=== PATIENT | male | born 1990 | race Caucasian/White ===

== ENCOUNTER 2019-08-30 13:18 | Emergency (ER) | payer BC ==
[2019-08-30] MEDS ORDERED: BUPIVACAINE 0.5% PF 10 ML VIAL ONE (13:58)
[2019-08-30] MEDS ORDERED: LIDOCAINE 1% MPF 30 ML VIAL ONE (13:58)
--- NOTE | 2019-08-30 15:05 | ER ---
Nurse's Notes [facility] Name: Malcolm Mathew Age: 28 yrs Sex: Male : 1990 Arrival Date: 08/30/2019 Time: 13:24 Bed 26 Private MD: Diagnosis: Puncture wound with foreign body of left middle finger without damage to nail-fishhook Presentation: 08/30 13:30 Presenting complaint: Patient states: He was fishing and got the hook stuck in his aj1 right middle finger at 1245 today. Reports last tetanus shot was one year ago. Transition of care: patient was not received from another setting of care. Onset of symptoms was August 30, 2019 at 12:45. Risk Assessment: Do you want to hurt yourself or someone else? Patient reports no desire to harm self or others. Initial Sepsis Screen: Does the patient meet any 2 criteria? No. Patient's initial sepsis screen is negative. Does the patient have a suspected source of infection? Yes: Skin breakdown/wound. Care prior to arrival: None. 13:30 Method Of Arrival: Ambulatory aj 13:30 Acuity: TINO 4 aj1 Triage Assessment: 13:31 General: Appears in no apparent distress. comfortable, Behavior is calm, cooperative, aj1 appropriate for age. Pain: Pain currently is 2 out of 10 on a pain scale. Historical: - Allergies: 13:30 No Known Allergies; aj1 - Home Meds: 13:30 None [Active]; aj1 - PMHx: 13:30 None; aj1 - PSHx: 13:30 None; aj1 - Immunization history:: Last tetanus immunization: up to date Flu vaccine is not up to date. - Social history:: Smoking status: Patient/guardian denies using tobacco. - Ebola Screening: : Patient denies travel to an Ebola-affected area in the 21 days before illness onset. Screenin:32 Abuse screen: Denies threats or abuse. Denies injuries from another. Nutritional aj1 screening: No deficits noted. Tuberculosis screening: No symptoms or risk factors identified. 15:24 Fall Risk None identified. aj1 Assessment: 13:32 General: Appears in no apparent distress. comfortable, Behavior is calm, cooperative, aj1 appropriate for age. Pain: Pain currently is 2 out of 10 on a pain scale. Neuro: Level of Consciousness is awake, alert, obeys commands, Oriented to person, place, time, situation. Cardiovascular: Patient's skin is warm and dry. Respiratory: Airway is patent Respiratory effort is even, unlabored, Respiratory pattern is regular, symmetrical. GI: No signs and/or symptoms were reported involving the gastrointestinal system. : No signs and/or symptoms were reported regarding the genitourinary system. EENT: No signs and/or symptoms were reported regarding the EENT system. Derm: fish hook noted to right middle finger. Musculoskeletal: No signs and/or symptoms reported regarding the musculoskeletal system. Circulation, motion, and sensation intact. 14:12 Reassessment: Patient appears in no apparent distress at this time. No changes from aj1 previously documented assessment. Patient and/or family updated on plan of care and expected duration. Pain level reassessed. Patient is alert, oriented x 3, equal unlabored respirations, skin warm/dry/pink. 15:16 Reassessment: Patient appears in no apparent distress at this time. No changes from aj1 previously documented assessment. Patient and/or family updated on plan of care and expected duration. Pain level reassessed. Patient is alert, oriented x 3, equal unlabored respirations, skin warm/dry/pink. Vital Signs: 13:31 BP 124 / 79; Pulse 87; Resp 18; Temp 97.5; Pulse Ox 98% on R/A; Weight 108.86 kg; aj1 Height 6 ft. 3 in. (190.50 cm); Pain 2/10; 14:12 BP 114 / 71; Pulse 89; Resp 18; Pulse Ox 99% on R/A; aj1 15:24 BP 109 / 82; Pulse 88; Resp 18; Pulse Ox 97% on R/A; aj1 13:31 Body Mass Index 30.00 (108.86 kg, 190.50 cm) aj1 ED Course: 13:24 Patient arrived in ED. mr 13:29 Gayle Marie, RN is Primary Nurse. aj1 13:30 Triage completed. aj1 13:31 Arm band placed on Patient placed in an exam room. aj1 13:32 Patient has correct armband on for positive identification. Bed in low position. Call aj1 light in reach. 13:32 No provider procedures requiring assistance completed. aj1 13:36 Dayron Roger PA is PHCP. cp 13:36 Jimy Connolly MD is Attending Physician. cp 15:02 XRAY Hand LEFT 3 View In Process Unspecified. EDMS 15:16 Wound care: to puncture was cleaned with Betadine, irrigated with normal saline, aj1 Patient tolerated well. 15:25 Patient did not have IV access during this emergency room visit. aj1 Administered Medications: No medications were administered Outcome: 15:04 Discharge ordered by MD. cp 15:25 Discharged to home ambulatory. aj1 15:25 Condition: good 15:25 Discharge instructions given to patient, Instructed on discharge instructions, follow up and referral plans. medication usage, Demonstrated understanding of instructions, follow-up care, medications, Prescriptions given X 1. 15:25 Patient left the ED. aj1 Signatures: Dispatcher [employer] EDMS Gayle Marie RN RN aj1 Denisse Rodriguez Corey, PA PA cp Corrections: (The following items were deleted from the chart) 13:31 13:30 Presenting complaint: Patient states: He was fishing and got the hook stuck in aj1 his right middle finger at 1245 today aj1
--- NOTE | 2019-08-30 15:05 | EDPHYS ---
Physician Documentation [facility] Name: Malcolm Mathew Age: 28 yrs Sex: Male : 1990 Arrival Date: 08/30/2019 Time: 13:24 Bed 26 Private MD: ED Physician Jimy Connolly HPI: 08/30 14:00 This 28 yrs old Male presents to ER via Ambulatory with complaints of Fish cp hook in finger. 14:00 The patient or guardian reports injury, pain, a puncture wound, fish hook. cp 14:00 The complaints affect the s[place] side middle phalanx left middle finger. Context: cp resulted from fishing. Onset: The symptoms/episode began/occurred just prior to arrival. Associated signs and symptoms: Pertinent negatives: cyanosis distally, decreased sensation distally. Severity of symptoms: in the emergency department the symptoms are unchanged. Historical: - Allergies: 13:30 No Known Allergies; aj1 - Home Meds: 13:30 None [Active]; aj1 - PMHx: 13:30 None; aj1 - PSHx: 13:30 None; aj1 - Immunization history:: Last tetanus immunization: up to date Flu vaccine is not up to date. - Social history:: Smoking status: Patient/guardian denies using tobacco. - Ebola Screening: : Patient denies travel to an Ebola-affected area in the 21 days before illness onset. ROS: 14:05 Constitutional: Negative for fever. cp 14:05 Cardiovascular: Negative for chest pain. cp 14:05 Respiratory: Negative for cough, shortness of breath, wheezing. 14:05 Abdomen/GI: Negative for abdominal pain. 14:05 MS/extremity: Positive for pain, tenderness, of the left middle finger, Negative for paresthesias. 14:05 Skin: Positive for puncture, of the middle phalanx left middle finger, fish hook. 14:05 All other systems are negative. Exam: 14:12 Constitutional: The patient appears in no acute distress, alert, awake, non-toxic, well cp developed, well nourished. 14:12 Head/Face: Normocephalic, atraumatic. cp 14:12 Musculoskeletal/extremity: Extremities: ROM: full active range of motion, in the left middle finger, Perfusion: the extremity is normally perfused throughout, Sensation intact. 14:12 Skin: injury, that can be described as foreign body containing, without bleeding, noted fish hook, puncture(s), that are deep, of the middle phalanx s[place] side left middle finger. Vital Signs: 13:31 BP 124 / 79; Pulse 87; Resp 18; Temp 97.5; Pulse Ox 98% on R/A; Weight 108.86 kg; aj1 Height 6 ft. 3 in. (190.50 cm); Pain 2/10; 14:12 BP 114 / 71; Pulse 89; Resp 18; Pulse Ox 99% on R/A; aj1 15:24 BP 109 / 82; Pulse 88; Resp 18; Pulse Ox 97% on R/A; aj1 13:31 Body Mass Index 30.00 (108.86 kg, 190.50 cm) aj1 Procedures: 15:00 Foreign Body Removal: a fishhook, from the s[place] side middle phalanx left middle cp finger, by needle, Dressinx4s were used to dress the wound, The patient tolerated the removal well. MDM: 13:45 Patient medically screened. cp 15:00 Test interpretation: by ED physician or midlevel provider: plain radiologic studies, cp xrays of left hand negative for fracture. 15:03 Data reviewed: vital signs, nurses notes, radiologic studies, plain films, and as a cp result, I will discharge patient. 15:03 Differential diagnosis: open fracture, closed fracture, puncture wound. Counseling: I cp had a detailed discussion with the patient and/or guardian regarding: the historical points, exam findings, and any diagnostic results supporting the discharge/admit diagnosis, radiology results, the need for outpatient follow up, a family practitioner, to return to the emergency department if symptoms worsen or persist or if there are any questions or concerns that arise at home. Response to treatment: the patient's symptoms have markedly improved after treatment. Special discussion: I discussed in detail with the patient the higher chance of wound infection based on his presenting history. 15:04 ED course: Fish hook removed. Wound cleaned and irrigated. Wound dressed. Will cp discharge to home for continued monitoring. 08/30 14:35 Order name: XRAY Hand LEFT 3 View; Complete Time: 08:06 cp 08/30 14:35 Order name: Wound Care: please clean and irrigate ; Complete Time: 15:17 cp Administered Medications: No medications were administered Disposition: 15:45 Chart complete. cp 15:46 Co-signature as Attending Physician, Jimy Connolly MD I agree with the assessment and kdr plan of care. Disposition: 08/30/19 15:04 Discharged to Home. Impression: Puncture wound with foreign body of left middle finger without damage to nail - fishhook. - Condition is Stable. - Discharge Instructions: Puncture Wound. - Prescriptions for Doxycycline Hyclate 100 mg Oral Tablet - take 1 tablet by ORAL route every 12 hours; 20 tablet. - Medication Reconciliation Form, Thank You Letter, Antibiotic Education, Prescription Opioid Use form. - Follow up: Private Physician; When: 48 Hours; Reason: Wound Recheck. - Problem is new. - Symptoms have improved. Signatures: Dispatcher [employer] Gayle Aranda RN RN aj1 Jimy Connolly MD MD kdr Dayron Roger PA PA cp Corrections: (The following items were deleted from the chart) 15:25 15:04 08/30/2019 15:04 Discharged to Home. Impression: Puncture wound with foreign body aj1 of left middle finger without damage to nail - fishhook. Condition is Stable. Forms are Medication Reconciliation Form, Thank You Letter, Antibiotic Education, Prescription Opioid Use. Follow up: Private Physician; When: 48 Hours; Reason: Wound Recheck. Problem is new. Symptoms have improved. cp
--- NOTE | 2019-08-30 15:10 | RAD REPORT ---
EXAM DESCRIPTION: RAD -Hand Left 3 View - 08/30/2019 3:02 pm CLINICAL HISTORY: Left hand pain status post injury FINDINGS: No fracture or dislocation is seen. A radiopaque foreign body not seen
[2019-08-30 15:36] VITALS: TEMP 97.5
[2019-08-30 15:39] VITALS: BP 109/82; O2SAT 97
== END 2019-08-30 15:25 | disposition home or self-care (01) ==
LOC: ER 13:18
DX: S61.243A Puncture wound with foreign body of left middle finger without damage to nail, initial encounter (principal)
CPT/HCPCS: 99284